=== PATIENT | female | born 1955 | race Caucasian/White ===

== ENCOUNTER 2025-01-25 09:06 | Outpatient (CLI) | payer MEDICARE, OTHER ==
--- NOTE | 2025-01-25 10:48 | RADIOLOGY REPORT ---
CLINICAL INFORMATION: Spondylosis, cervical region. TECHNIQUE: Multisequence multiplanar MRI images of the cervical spine were obtained without contrast. COMPARISON: None FINDINGS: Bones: Straightening of the normal cervical lordosis. No significant spondylolisthesis. Vertebral body heights are maintained. Posterior elements are intact. No acute fracture. No focal suspicious marrow signal abnormality. Spinal cord: Spinal cord is normal in signal intensity and morphology. Paraspinal soft tissues: Paraspinal and prevertebral soft tissues are unremarkable. Other: No other significant findings. Cervical disc levels: C2-C3: Disc desiccation. No significant spinal canal or neural foraminal stenosis. C3-C4: Disc desiccation with diffuse disc bulge causing [id number] spinal canal stenosis and partial effacement of the lateral recesses. No significant neural foraminal stenosis. C4-C5: Disc desiccation. Minimal disc bulge mildly flattening the ventral aspect of the thecal sac. Facet and uncinate hypertrophy with mild left neural foraminal stenosis. C5-C6: Disc desiccation with moderate disc space narrowing and diffuse disc bulge causing moderate spinal canal stenosis and partial effacement of the lateral recesses. Facet and uncinate hypertrophy with moderate bilateral neural foraminal stenoses. C6-C7: Disc desiccation with mild disc space narrowing and diffuse disc bulge with concomitant infolding of the ligamentum flavum contributing to [id number] spinal canal stenosis and partial effacement of the lateral recesses. Facet and uncinate hypertrophy with moderate right and mild left neura l foraminal stenoses. C7-T1: Disc desiccation. No significant spinal canal or neural foraminal stenosis. IMPRESSION: 1. Degenerative disc disease and facet disease in the lumbar spine with associated spinal canal, subarticular, and neural foraminal stenoses as detailed above. 2. Straightening of the normal cervical lordosis. No significant spondylolisthesis. 3. Additional findings as described above.
== END 2025-01-25 23:59 | disposition home or self-care (01) ==
LOC: MRI02 09:06
PROVIDERS: ATTEND Orthopaedic Surgery Orthopaedic Surgery of the Spine
DX: M50.123 Cervical disc disorder at C6-C7 level with radiculopathy (principal); M47.812 Spondylosis without myelopathy or radiculopathy, cervical region; M47.816 Spondylosis without myelopathy or radiculopathy, lumbar region
CPT/HCPCS: 72141